=== PATIENT | male | born 1980 | race Caucasian/White ===

== ENCOUNTER → 2016-06-20 | Outpatient (CLI) | payer OTHER ==
[~2016-06-20] VITALS: Ht 190.5 cm; Wt 108.9 kg
[~2016-06-20] MED LIST: AZULFIDINE500 M1 PO; BACLOFEN20 MG PO; DICLOFENAC SOD50 M1 PO; NABUMETONE 500500 M1 PO; NAPROSYN500 MG PO; OMEPRAZOLE 20 M20 M1 PO
--- NOTE | ~2016-06-20 | HPC ---
[facility] [place] [address] PAIN MANAGEMENT CONSULTATION Name: JOSE NAJERA Room #: REG CLI M.R.#: [id number] Admission: 06/20/16 Attend Phys: Ajay Harley DO Discharge: Date of : 84 Report #: [id number] THIS REPORT FOR: //name// CC: FAM physician/PCP Ajay Potter MD DATE OF SERVICE: 06/20/2016 REFERRING PHYSICIAN: Ten Potter MD. CHIEF COMPLAINT: Low back pain, left lower extremity pain with paresthesias. HISTORY OF PRESENT ILLNESS: As you know, the patient is a 35-year-old male, referred to our service by the [place] [facility] for epidural injections under fluoroscopic guidance to address suspected lumbar radiculopathy. The patient indicates pain began years ago and progressively worsened. He does indicate today that he has been placed on medical disability, secondary to the findings on his MRI, for which he brought copies of the official interpretation. He indicates today, pain is steady, describes the pain as burning, shooting, aching, sharp, and stabbing, places his current pain score of 4/10, daily average of 4/10, worst pain has been is 9/10. The patient states pain is exacerbated with sitting and standing for long periods of time, bending and lifting, improves with flexibility, exercises, and movement. He has been referred to our service to trial epidural injections under fluoroscopic guidance to address suspected lumbar radiculopathy. PAST MEDICAL HISTORY: 1. Emotional problems. 2. Post-traumatic stress disorder. 3. Degenerative joint disease. 4. Osteoarthritis. 5. Gastroesophageal reflux disease. PAST SURGICAL HISTORY: None. SOCIAL HISTORY: The patient denies tobacco, alcohol, IV or illicit drug use. He admits to two alcoholic beverages per week. He is currently employed as a refrigerated national truck driver, but has been out of work for nearly a week, secondary to pain. He is receiving disability income through the . He is not in litigation in regards to his pain. He has been referred to our clinic to address suspected lumbar radiculopathy. REVIEW OF SYSTEMS: Positive for decrease in appetite, fever, night sweats, fatigue, weakness, frequent and recurrent headaches, wearing corrective eyewear, blurred and double vision, hearing loss with tinnitus, mouth sores, nocturia, [facility] [address] [place] [address] PAIN MANAGEMENT CONSULTATION Name: JOSE NAJERA Room #: REG CLLauren Tirado#: [id number] Admission: 06/20/16 Attend Phys: Ajay Harley DO Discharge: Date of : 84 Report #: [id number] numbness and tingling sensations involving the left lower extremity, and depression. All other review of systems negative per 12-point review of systems other than those listed in the history of present illness. Pain impact score 20/70 indicating mild to moderate interference with daily activities secondary to pain. ALLERGIES: NO KNOWN DRUG ALLERGIES. CURRENT MEDICATIONS: Omeprazole 20 mg twice a day, naproxen 500 mg three times a day, sulfasalazine 1000 mg twice a day. IMAGING: MRI of the lumbar spine obtained on 09/28/2015, shows L1-L2 unremarkable, L2-L3 unremarkable, L3-L4 unremarkable, L4-L5 mild disk bulge annular fissure, mild bilateral facet arthropathy, mild spinal stenosis, mild bilateral neural foraminal narrowing. L5-S1, mild disk bulge with annular fissure, mild bilateral facet arthropathy. No spinal canal stenosis, moderate neural foraminal narrowing. PHYSICAL EXAMINATION: VITAL SIGNS: Blood pressure 128/84, pulse 72, respiratory rate 14, unlabored. The patient is 98% on room air. Current temperature 97.4 degrees Fahrenheit, height 6 feet 3 inches tall, weight 240 pounds, BMI calculated at 30. GENERAL: Well developed, well nourished, well hydrated. A 35-year-old male appearing his stated age, placing current pain score at 4/10. HEENT: Normocephalic and atraumatic. Pupils are equal, round, and reactive to light. Extraocular muscles are intact. Sclerae are nonicteric without injection. NEUROLOGIC: Cranial nerves 2-12 are grossly intact. Speech is fluent. The patient deemed a fair historian. LUNGS: Clear. No wheezes, rhonchi, or rales. CARDIOVASCULAR: Regular. No appreciable gallop or rub. ABDOMEN: Soft, nontender, and nondistended. Normal active bowel sounds. EXTREMITIES: Show no clubbing, no cyanosis, no edema. MUSCULOSKELETAL: Lower extremity strength appears equal and symmetrical at 5/5, intact to light touch from L1 through S2 dermatomes. Deep tendon reflexes are symmetrical at patella and Achilles. Ankle clonus negative. Babinski is negative. Seated straight leg raising negative. Supine straight leg raising negative. Ameena's test is negative. Modified Gaenslen's is positive for some axial low back pain. There is some palpatory tenderness over the paraspinal musculature of the lower lumbar spine. No spinous process tenderness. Gait tandem. Station normal. ASSESSMENT: 1. Possible lumbar radiculopathy. 2. Displacement of lumbar intervertebral disk with possible radiculopathy. [address] [address] PAIN MANAGEMENT CONSULTATION Name: JOSE NAJERA Room #: REG CLLauren Tirado#: [id number] Admission: 06/20/16 Attend Phys: Ajay Harley DO Discharge: Date of : 84 Report #: [id number] 3. Lumbosacral spondylosis with possible radiculopathy. PLAN: 1. The patient has been referred to our clinic by his primary care physician at the [place] [facility] to trial an epidural injection under fluoroscopic guidance. Based on the patient's description of pain and distribution with radiating symptoms into the left lower extremity, this would appear to be a lumbar radiculopathy. The description of the patient's symptoms also have neuropathic component with numbness and tingling. I was unable to elicit any neuropathic distribution or even radiation of symptoms with propagating, testing such as seated straight leg raising, supine straight leg raising. A slump testing was also negative for any type of neuropathic component to the patient's symptoms. We have discussed with the patient the requested epidural injection and are willing to provide this to the patient today, but I have advised the patient that the inability to elicit pain with provocating testing is not indicative of a lack of radicular symptoms, just a lack of confirmatory data. We discussed with the patient the other treatment options for lumbar radiculopathy that would include physical therapy, stretching exercises, core strengthening, for which the patient has been involved. We discussed medication management through the [place] system with neuropathic pain medications and a low dose nonsteroidal anti-inflammatory. We discussed the requested epidural injection and surgical options. After reviewing the risks and benefits of all proposed treatment options, the patient chose to undergo the requested lumbar epidural injection under fluoroscopic guidance. The patient was advised the risks and benefits of a lumbar epidural injection. These risks include but are not necessarily limited to bleeding, bruising, infection, and worsening pain. No relief of pain and also risk of temporary or permanent muscle weakness, temporary or permanent nerve damage, possible paralysis and . The patient states he understood and wished to proceed. 2. No medication changes were made at today's visit. The patient to continue current medical therapy as previously prescribed. 3. The patient is to return to our clinic in one month. At that time, we review the efficacy of the initial epidural injection to determine if a next in the series of epidural injections might be necessary. 4. We wish to thank the referring physician for the opportunity to see the patient in consultation. We will keep you apprised of his response to treatment, as we address his ongoing pain. Again, we wish to thank you for the opportunity to participate in his care. PROCEDURE NOTE: DESCRIPTION OF PROCEDURE: L5-S1 left paramedian epidural steroid injection under fluoroscopic guidance. This is the first procedure of the first series [place] [address] PAIN MANAGEMENT CONSULTATION Name: JOSE NAJERA Room #: REG CLI Celestino#: [id number] Admission: 06/20/16 Attend Phys: Ajay Harley DO Discharge: Date of : 84 Report #: [id number] After obtaining written consent, the patient was taken back to the fluoroscopy suite, placed in a prone position with pillow under the abdomen to decrease lumbar lordosis. The skin overlying the lumbosacral area was then prepped and draped in aseptic fashion. The L5-S1 vertebral interspace was then identified by AP fluoroscopy. The skin and subcutaneous tissue overlying the target site of injection was anesthetized with 3 mL 1% lidocaine. A 20-guage 3-1/2 inch Tuohy needle was then advanced under fluoroscopic guidance towards the epidural space using a left paramedian approach. The epidural space was identified using loss of resistance to air technique. After negative aspiration for heme or cerebrospinal fluid, a total of 1 mL of Omnipaque was injected. A lumbar epidurogram was confirmed using both AP and lateral fluoroscopy. After negative aspiration for heme or cerebrospinal fluid, 5 mL of solution containing 2 mL 40 mg per mL 80 mg total triamcinolone, 3 mL of lidocaine 1% was injected in increments. Contrast spread was noted posterior epidural space. The needle was then retracted approximately half way and needle tract flushed with 1 mL of 1% lidocaine. Needle was then removed. There were no apparent sensory or motor deficits in the lower extremity following the procedure. A sterile bandage was placed over the injection site. The heart rate, pulse, oximetry and blood pressure were continuously monitored after the procedure. There were no apparent complications. The patient tolerated the procedure well and was carefully escorted to the recovery room in stable condition. There were no apparent complications. After meeting discharge criteria, the patient was then discharged home. <ELECTRONICALLY SIGNED> By: Aajy Harley DO 06/25/16 0702 [id number] Ajay Harley DO /nt
[2016-06-20 10:36] VITALS: BP 128/84
== END ==
LOC: PAIN 07:16
DX: M47.27 Other spondylosis with radiculopathy, lumbosacral region (principal); M51.16 Intervertebral disc disorders with radiculopathy, lumbar region; F43.10 Post-traumatic stress disorder, unspecified; M19.90 Unspecified osteoarthritis, unspecified site; K21.9 Gastro-esophageal reflux disease without esophagitis; Z87.891 Personal history of nicotine dependence

== ENCOUNTER → 2016-07-11 | Outpatient (CLI) | payer OTHER ==
[~2016-07-11] VITALS: Ht 190.5 cm; Wt 105.9 kg
--- NOTE | ~2016-07-11 | HPC ---
[facility] [address] [place] [address] PAIN MANAGEMENT CONSULTATION Name: JOSE NAJERA Room #: REG CLI M.R.#: [id number] Admission: 07/11/16 Attend Phys: Ajay Harley DO Discharge: Date of : 84 Report #: [id number] THIS REPORT FOR: //name// CC: [facility] physician/PCP Ajay POTTER MD DATE OF SERVICE: 07/11/2016 REFERRRING PHYSICIAN: Ten Potter M.D. CHIEF COMPLAINT: Right low back pain. HISTORY OF PRESENT ILLNESS: As you know, patient is a 35-year-old male [facility] under fluoroscopic guidance. The patient has completed first in a series of epidural injections with greater than 80% improvement in overall pain. He states he has had complete resolution of his left low back pain, left lower extremity pain, but continues to experience point specific pain directly over the facet joints at L5-S1. He points directly to the area. States it is exacerbated with activity, bending, lifting, twisting, appears to improve with slight forward flexion. He returns today in followup visit, discussed this one residual area of discomfort. He is pleased with response to the epidural injection provided at last visit. He is hopeful to see improvement to address this right low back pain. ALLERGIES: NO KNOWN DRUG ALLERGIES. CURRENT MEDICATIONS: Omeprazole 20 mg twice a day, naproxen 500 mg 3 times a day, sulfasalazine 1000 mg twice a day. SOCIAL HISTORY: The patient denies tobacco, IV or illicit drug use. Admits two alcohol beverages per week. He is employed as a concrete mixing truck driver. He is working out, not receiving workmen's compensation, unaccompanied today. PHYSICAL EXAMINATION: VITAL SIGNS: Blood pressure 127/83, pulse is 60, respiratory rate 14, unlabored. The patient is 97% on room air. Height 6 feet 3 inch tall, weight 233.4 pounds, BMI calculated 29.2. GENERAL: Well developed, well nourished, well hydrated 35-year-old male appearing stated age. He is reporting pain score 4/10. HEENT: Normocephalic, atraumatic. Pupils equal, round, reactive to light. Extraocular muscles are intact. EXTREMITIES: Show no clubbing, no cyanosis, no edema. MUSCULOSKELETAL: The patient has one area of discomfort noted directly over the right L5-S1 facet joint. Deep palpation in area causes intensification of pain. Lumbar extension, rotation, lateral flexion to the right, all intensify [address] [address] PAIN MANAGEMENT CONSULTATION Name: JOSE NAJERA Room #: REG CL M.R.#: [id number] Admission: 07/11/16 Attend Phys: Ajay Harley DO Discharge: Date of : 84 Report #: [id number] patient's pain. Pain is elicited; however, is improved with forward flexion of lumbar spine. Rotation to the left and lateral flexion to left. Seated straight leg raising remains negative. Supine straight leg raising negative. ASSESSMENT: 1. Lumbosacral spondylosis without radicular symptoms. 2. Lumbar radiculopathy. 3. Displacement of a lumbar intervertebral disk with radicular symptoms. 4. Intractable pain. PLAN: 1. The patient has returned today in followup visit where he is reporting complete resolution of his low back pain, left lower extremity pain with paresthesias. Epidural injection has provided greater than 80% improvement in overall pain. He is extremely pleased with response to this treatment. At this time, he wishes to delay the next in a series of epidural injections until which time his lumbar radicular symptoms return. 2. The patient is suffering from what appears to be facet arthropathy of the lumbar region. He has a point specific pain generator directly over the right L5-S1 facet. I would recommend the patient trial conservative medical therapy initially. If this is ineffective, we will obtain authorization for the patient to undergo intra-articular facet injections on the right side as this is the only area of pain degeneration. I would recommend that we address both the L4-L5 and L5-S1 facets on the right side as these are the two major generators of pain in the low lumbar spine responsible for approximately 90% of movement in the lumbar region. By dressing both we are able to alleviate the majority of the patient's right low back pain. We will begin the authorization process and contact the patient once we have achieved precertification for him to undergo L4-L5, L5-S1 intraarticular facet injections on the right side. 3. The patient will be started on nabumetone 500 mg dose, this will replace his naproxen sodium. He will begin the nabumetone tonight. He will take no other nonsteroidal anti-inflammatories with this medication. He is to take this with meals. He is to watch for any side effects such as dyspepsia, worsening blood pressure, lower extremity edema. It he notes any side effects, discontinue use. 4. The patient was provided a prescription of baclofen 20 mg dose. He will begin with half tab. If this is ineffective at treating his muscle spasming in the lower lumbar spine, he could then take a full tab 20 mg dose. He was given #90 tablets. I advised not to drive or operate heavy equipment while on this medication until which time he knows how it will affect him. He was given this prescription with two refills. 5. The patient will return to our clinic once we have achieved precertification for him to undergo right L4-L5, L5-S1 interarticular facet injections. We are hopeful the medications provided today will improve his low back pain and we [address] [place] [address] PAIN MANAGEMENT CONSULTATION Name: JOSE NAJERA Room #: REG CLLauren Tirado#: [id number] Admission: 07/11/16 Attend Phys: Ajay Harley DO Discharge: Date of : 84 Report #: [id number] will not have to undergo this procedure, but we will have it approved in case, it is necessary. <ELECTRONICALLY SIGNED> By: Ajay Harley DO 07/23/16 0805 [id number] Ajay Harley DO /nt
[2016-07-11 09:28] VITALS: BP 127/83
== END | disposition home or self-care (01) ==
LOC: PAIN 07:07
DX: M51.16 Intervertebral disc disorders with radiculopathy, lumbar region (principal); M47.817 Spondylosis without myelopathy or radiculopathy, lumbosacral region; G89.29 Other chronic pain; Z87.891 Personal history of nicotine dependence